=== PATIENT | male | born 1990 | race African-American/Black ===

== ENCOUNTER 2024-09-19 17:13 | Emergency (ER) | payer OTHER ==
[2024-09-19] MEDS ORDERED: IBUPROFEN 400 MG TAB ONE (19:10)
--- NOTE | 2024-09-19 19:12 | RAD REPORT ---
EXAM: CT brain without contrast HISTORY: TRAUMA COMPARISON: None TECHNIQUE: Multiple contiguous axial images were obtained and a CT of the brain without contrast. Sag ittal and coronal reformats were performed. FINDINGS: No evidence of hydrocephalus, intracranial hemorrhage, or extra-axial fluid collection. The brain is normal in morphology. The calvarium is intact. The visualized paranasal sinuses and mastoid air cells are essentially clear . IMPRESSION: No evidence of acute intracranial abnormality. EXAM: CT of the cervical spine without contrast HISTORY: TRAUMA COMPARISON: None TECHNIQUE: Multiple contiguous axial images were obtained in a CT of the cervical spine without contr ast. Sagittal and coronal reformats were performed. FINDINGS: The vertebral bodies demonstrate normal height and alignment. No evidence of acute fracture or subluxation.. No degenerative changes are present. No prevertebral soft tissue swelling is seen. The posterior facets are well aligned. Normal alignment of the skull base with the cervical spine is seen. The lung apices are unremarkable. IMPRESSION: No evidence of acute osseous abnormality of the cervical spine.
--- NOTE | 2024-09-19 19:41 | RAD REPORT ---
EXAMINATION: XR Foot Left 3 View CLINICAL INDICATION: Male, 34 years old. [facility] MAIN PAIN Bed Name: 9 TECHNIQUE: 3 view radiographs of the left foot were obtained. COMPARISON: No prior exam. FINDINGS: Irregularity along the base of the big toe distal phalanx, suggesting a fracture which coul d be acute or subacute. Normal alignment. No evidence of arthropathy or other focal bone lesion. Mild big toe soft tissue swelling. No significant degenerative changes. IMPRESSION: Acute or subacute fracture along the base of the big toe distal phalanx.
--- NOTE | 2024-09-19 19:42 | RAD REPORT ---
EXAM: XR Hand Right 3 View HISTORY: [facility] MAIN PAIN Bed Name: 9 COMPARISON: None TECHNIQUE: 3 radiographic views of the RIGHT hand submitted. FINDINGS: No evidence of acute fracture or dislocation. Joint alignment is maintained. Soft tissue s welling along the dorsum of the hand. No significant degenerative changes are present. IMPRESSION: No significant bone or joint abnormality. Soft tissue swelling along the dorsum of the wallace nd.
--- NOTE | 2024-09-19 19:42 | RAD REPORT ---
EXAM: XR Hand Left 3 View HISTORY: [facility] MAIN PAIN Bed Name: 9 COMPARISON: None TECHNIQUE: 3 radiographic views of the LEFT hand submitted. FINDINGS: No evidence of acute fracture or dislocation. 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 Joint alignment is maintained. Soft tissue swelling along the dorsum of the hand particularly at the level of the metacarpals.. No significant degenerative changes are present. IMPRESSION: No acute bone or joint abnormality. Soft tissue swelling as above. Sequelae of second dig it amputation.
[2024-09-19] MEDS ORDERED: LIDOCAINE 1% 20 ML MDV ONE (19:55)
--- NOTE | 2024-09-19 21:12 | EDPHYS ---
Physician Documentation [facility] Name: Lorenzo Sebastian Age: 34 yrs Sex: Male : 1990 Arrival Date: 09/19/2024 Time: 17:13 Bed 9 Private MD: ED Physician Ashleigh Redmna HPI: 09/19 17:36 This 34 yrs old Black Male presents to ER via EMS with complaints of hand injury/pain. sb4 17:36 34-year-old male otherwise healthy inmate presents with injuries to bilateral hands- sb4 lacerations and pain. He was found altered, minimally responsive, punching the wall. He is now oriented x 4 only complaining of pain in his hands. Small superficial lacerations noted to both hands. He is also complaining of pain in his head and neck. Historical: - Allergies: 17:25 No Known Allergies; jb4 - PMHx: 17:25 HTN; jb4 - PSHx: 17:25 None; jb4 - Immunization history:: Adult Immunizations up to date. - Infectious Disease History:: Denies. - Social history:: Smoking status: Patient denies any tobacco usage or history of. ROS: 17:37 Constitutional: Negative for fever, chills, and weight loss, sb4 17:37 MS/extremity: Positive for injury or acute deformity, pain, of the right hand and left hand, 17:37 Skin: Positive for abrasion(s), laceration(s), of the right hand and left hand, 17:37 All other systems are negative, Exam: 17:40 Constitutional: This is a well developed, well nourished patient who is awake, alert, sb4 and in no acute distress. Head/Face: Normocephalic, atraumatic. Eyes: Extra-ocular motions intact. Periorbital areas with no swelling, redness, or edema. ENT: Mucous membranes moist. Neck: Supple, full range of motion without nuchal rigidity, or vertebral point tenderness. 17:40 Musculoskeletal/extremity: pain with ROM of all fingers bilaterally. no decreased sensation. radial pulses intact. 17:40 Skin: injury, abrasion(s), very small abrasion noted, of the scalp, laceration(s), the wound is approximately 2 cm(s), with a depth of .5 cm(s), of the dorsum of right hand, that can be described as irregular, jagged, with mild bleeding, Vital Signs: 17:19 BP 135 / 80; Pulse 71; Resp 16; Temp 98.1(O); Pulse Ox 95% on R/A; Weight 65.77 kg (R); jb4 Height 5 ft. 11 in. ; Pain 6/10; 19:12 BP 145 / 78; Pulse 87; Resp 16; Pulse Ox 97% on R/A; jb4 17:19 Body Mass Index 20.22 (65.77 kg, 180.34 cm) 4 17:19 Pain Scale: Adult jb4 Laceration: 21:10 Wound Repair of 2cm ( 0.8in ) subcutaneous laceration to dorsum of right hand. sb4 Irregularly shaped.. Distal neuro/vascular/tendon intact. Anesthesia: Local anesthetic administered with 5 mls of 1% lidocaine. Wound prep: Moderate cleansing with hibiclenz by me, Wound irrigation with saline by me, Wound explored, Copious irrigation. Skin closed with 2 5-0 Prolene using simple sutures and sterile technique. Dressed with non-adherent dressing. Patient tolerated well. MDM: 17:20 Medical Screening Exam initiated sb4 21:10 Data reviewed: vital signs, nurses notes, radiologic studies, and as a result, I will sb4 discharge patient. Counseling: I had a detailed discussion with the patient and/or guardian regarding the historical points, exam findings, and any diagnostic results supporting the discharge/admit diagnosis, radiology results, the need for outpatient follow up, for suture removal in 1 week, to return to the emergency department if symptoms worsen or persist or if there are any questions or concerns that arise at home. 09/19 17:24 Order name: Head C Spine MPR Wo Con CT; Complete Time: 19:13 sb4 09/19 17:24 Order name: Hand Left 3 View XRAY; Complete Time: 19:42 sb4 09/19 17:24 Order name: Hand Right 3 View XRAY; Complete Time: 19:43 sb4 09/19 17:24 Order name: Foot Left 3 View XRAY; Complete Time: 19:42 sb4 09/19 19:46 Order name: Suture Tray at Bedside; Complete Time: 20:45 sb4 09/19 21:12 Order name: Wound dressing; Complete Time: 22:05 sb4 Administered Medications: 19:24 Drug: Ibuprofen PO 800 mg PO once Route: PO; jb4 20:45 Drug: Lidocaine Infiltration (1 %) 5 ml 5 ml Infiltration once; to bedside {Note: jb4 administered by ER provider.} Volume: 5 ml; Route: Infiltration; Disposition Summary: 09/19/24 21:11 Discharge Ordered Notes: Location: Home sb4 Problem: new sb4 Symptoms: have improved sb4 Condition: Stable sb4 Diagnosis - Laceration without foreign body of right hand, initial encounter sb4 - Nondisplaced fracture of distal phalanx of right great toe, initial encounter for sb4 closed fracture Followup: sb4 - With: Private Physician - When: 1 week - Reason: Staple/Suture removal Discharge Instructions: - Discharge Summary Sheet sb4 - Toe Fracture, [id number] sb4 - Hand Contusion, [id number] sb4 - Laceration Care, Adult, [id number] sb4 Forms: - Patient Portal Instructions sb4 - Leadership Thank You Letter sb4 Prescriptions: - Ibuprofen 800 mg Oral Tablet - take 1 tablet ORAL route every 8 hours As needed take with food; 30 tablet; sb4 Refills: 0, Product Selection Permitted Signatures: Dispatcher [employer] Eagle Sharma RN RN jb4 Madelyn Motta PA-C PA-C sb4 Corrections: (The following items were deleted from the chart) 17:25 17:25 Head C Spine MPR Wo Con+CT.RAD.BRZ ordered. EDMS EDMS 17:25 17:25 Hand Left 3 View+RAD.RAD.BRZ ordered. EDMS EDMS 17:25 17:25 Hand Right 3 View+RAD.RAD.BRZ ordered. EDMS EDMS 17:25 17:25 Foot Left 3 View+RAD.RAD.BRZ ordered. EDMS EDMS
--- NOTE | 2024-09-19 21:12 | ER ---
Nurse's Notes [facility] Name: Lorenzo Sebastian Age: 34 yrs Sex: Male : 1990 Arrival Date: 09/19/2024 Time: 17:13 Bed 9 Private MD: Diagnosis: Laceration without foreign body of right hand, initial encounter;Nondisplaced fracture of distal phalanx of right great toe, initial encounter for closed fracture Presentation: 09/19 17:19 Chief complaint: EMS states: Pt was found initially punching the wall and then later jb4 found on the floor. [facility] and was initially A\T\Ox1 and was A\T\Ox4. He was noted to have lacerations to his hands, abrasions noted to the back of his head and first left toe. Coronavirus screen: At this time, the client does not indicate any symptoms associated with coronavirus-19. Ebola Screen: No symptoms or risks identified at this time. Initial Sepsis Screen: Does the patient meet any 2 criteria? No. Patient's initial sepsis screen is negative. Does the patient have a suspected source of infection? No. Patient's initial sepsis screen is negative. Risk Assessment: Do you want to hurt yourself or someone else? Patient reports no desire to harm self or others. Onset of symptoms was September 19, 2024. Transition of care: patient was not received from another setting of care. 17:19 Method Of Arrival: EMS: [facility] jb4 17:19 Acuity: ROSS 3 jb4 Historical: - Allergies: 17:25 No Known Allergies; jb4 - PMHx: 17:25 HTN; jb4 - PSHx: 17:25 None; jb4 - Immunization history:: Adult Immunizations up to date. - Infectious Disease History:: Denies. - Social history:: Smoking status: Patient denies any tobacco usage or history of. Screenin:25 [facility] ED Fall Risk Assessment (Adult) History of falling in the last 3 months, jb4 including since admission No falls in past 3 months (0 pts) Confusion or Disorientation No (0 pts) Intoxicated or Sedated No (0 pts) Impaired Gait Yes (1 pt) Mobility Assist Device Used Yes (1 pt) Altered Elimination Yes (1 pt) Score/Fall Risk Level 0 - 2 = Low Risk Oriented to surroundings, Maintained a safe environment. Abuse screen: Denies threats or abuse. Nutritional screening: No deficits noted. Tuberculosis screening: No symptoms or risk factors identified. Assessment: 17:25 General: Appears in no apparent distress. comfortable, Behavior is calm, cooperative, jb4 appropriate for age. Pain: Complains of pain in scalp, left hand, left foot and right arm Pain does not radiate. Pain currently is 6 out of 10 on a pain scale. Neuro: Level of Consciousness is awake, alert, obeys commands, Oriented to person, place, time, situation. Cardiovascular: Patient's skin is warm and dry. Respiratory: Airway is patent Respiratory effort is even, unlabored, Respiratory pattern is regular, symmetrical. Derm: Skin is intact, Skin is pink, warm \T\ dry. Musculoskeletal: Circulation, motion, and sensation intact. Range of motion: intact in all extremities. 19:12 Reassessment: Patient appears in no apparent distress at this time. Patient and/or jb4 family updated on plan of care and expected duration. Pain level reassessed. Patient is alert, oriented x 3, equal unlabored respirations, skin warm/dry/pink. 20:00 Reassessment: Patient appears in no apparent distress at this time. Patient and/or jb4 family updated on plan of care and expected duration. Pain level reassessed. Patient is alert, oriented x 3, equal unlabored respirations, skin warm/dry/pink. 21:00 Reassessment: Patient appears in no apparent distress at this time. Patient and/or jb4 family updated on plan of care and expected duration. Pain level reassessed. Patient is alert, oriented x 3, equal unlabored respirations, skin warm/dry/pink. 22:49 Reassessment: Patient appears in no apparent distress at this time. Patient and/or jb4 family updated on plan of care and expected duration. Pain level reassessed. Patient is alert, oriented x 3, equal unlabored respirations, skin warm/dry/pink. Vital Signs: 17:19 BP 135 / 80; Pulse 71; Resp 16; Temp 98.1(O); Pulse Ox 95% on R/A; Weight 65.77 kg (R); jb4 Height 5 ft. 11 in. ; Pain 6/10; 19:12 BP 145 / 78; Pulse 87; Resp 16; Pulse Ox 97% on R/A; jb4 17:19 Body Mass Index 20.22 (65.77 kg, 180.34 cm) jb4 17:19 Pain Scale: Adult jb4 ED Course: 17:17 Patient arrived in ED. jb4 17:20 Madelyn Motta PA-C is PHCP. sb4 17:20 Ashleigh Redman MD is Attending Physician. sb4 17:25 Triage completed. jb4 17:25 Arm band placed on right wrist. jb4 17:25 No provider procedures requiring assistance completed. Maintain EMS IV. Dressing jb4 intact. Good blood return noted. Site clean \T\ dry. Gauge \T\ site: 18g RFA. 18:10 Hand Left 3 View XRAY In Process Unspecified. EDMS 18:10 Hand Right 3 View XRAY In Process Unspecified. EDMS 18:11 Foot Left 3 View XRAY In Process Unspecified. EDMS 18:16 Head C Spine MPR Wo Con CT In Process Unspecified. EDMS 19:12 Eagle Arias, RN is Primary Nurse. jb4 22:49 Patient has correct armband on for positive identification. Bed in low position. Call jb4 light in reach. Side rails up X 1. Provided Education on: discharge instructions.. 22:49 IV discontinued, intact, bleeding controlled, No redness/swelling at site. Pressure jb4 dressing applied. Administered Medications: 19:24 Drug: Ibuprofen PO 800 mg PO once Route: PO; jb4 20:45 Drug: Lidocaine Infiltration (1 %) 5 ml 5 ml Infiltration once; to bedside {Note: jb4 administered by ER provider.} Volume: 5 ml; Route: Infiltration; Medication: 17:25 VIS not applicable for this client. jb4 Outcome: 21:11 Discharge ordered by . sb4 22:49 Discharged to Law Enforcement jb4 22:49 Condition: stable 22:49 Discharge instructions given to patient, police, Instructed on discharge instructions, follow up and referral plans. medication usage, Demonstrated understanding of instructions, follow-up care, medications, Prescriptions given X 1, 22:50 Patient left the ED. jb4 Signatures: Dispatcher [employer] EDMS Eagle Arias RN RN jb4 Madelyn Motta PA-C PA-C sb4
[2024-09-19 23:17] VITALS: TEMP 98.1
[2024-09-19 23:19] VITALS: BP 145/78; O2SAT 97
== END 2024-09-19 22:50 | disposition home or self-care (01) ==
LOC: ER 17:13
DX: S61.411A Laceration without foreign body of right hand, initial encounter (principal); S92.424A Nondisplaced fracture of distal phalanx of right great toe, initial encounter for closed fracture
CPT/HCPCS: 70450; 72125; 73130 ×2; 73630; 99284; 12041; J2003